=== PATIENT | male | born 1990 | race Caucasian/White ===

== ENCOUNTER 2021-11-19 17:19 | Emergency (ER) | payer SELFPAY ==
[~2021-11-19] VITALS: Ht 177.8 cm; Wt 90.7 kg
--- NOTE | 2021-11-19 17:33 | NUR ---
BIB MOM, C/O HEADACHE, ETOH WITHDRAWAL, SHAKINESS. ALSO CONCERNED ABOUT HIS SUGAR LEVEL LAST ALCOHOL INTAKE YESTERDAY MORNING. TO ER BED 9, HOOKED TO MONITOR, NOTED TACHY. CHANGED TO HOSP GOWN, WARM BLANKET PROVIDED. AWAITING MD BAUM.
--- NOTE | 2021-11-19 17:35 | NUR ---
[facility] DIRECTOR AT BEDSIDE
[2021-11-19] MEDS ORDERED: Thiamine 100 MG/ML VIAL ONE (17:52)
[2021-11-19] MEDS ORDERED: LORAZEPAM 1 MG TABLET ONE (17:53)
[2021-11-19] MEDS ORDERED: Thiamine 100 MG in IV D5W 50 ML IV SCH (18:00)
[2021-11-19] MEDS ORDERED: FAMOTIDINE/PF INJ 20 MG/2 ML VIAL IV ONE ×2 (18:00→18:47)
[2021-11-19] MEDS ORDERED: MAG HYDROX/AL HYDROX/SIMETH 30 ML UDC PO ONE (18:00)
[2021-11-19] MEDS ORDERED: IV NS 0.9% 1,000 ML BAG IV ONE (18:00)
[2021-11-19] MEDS ORDERED: LORAZEPAM 1 MG TABLET PO ONE (18:00)
[2021-11-19] MEDS ORDERED: LIDOCAINE VISCOUS 2% UD 15 ML UDC MM ONE (18:00)
[2021-11-19 18:09] LABS: BASOPHILS # (AUTO) 0.1 K/uL (0.0-0.2); BASOPHILS % (AUTO) 0.6 % (0.0-2.0); EOSINOPHILS % (AUTO) 0.5 % (0.0-6.0); HEMATOCRIT 50 % (39-51); HEMOGLOBIN 17.1 g/dL (13.5-17.5); LYMPHOCYTES # (AUTO) 2.8 K/uL (0.8-4.8); LYMPHOCYTES % (AUTO) 35.2 % (20.0-44.0); MEAN CORPUSCULAR HGB CONC 34 g/dl (31.0-36.0); MEAN CORPUSCULAR VOLUME 94 fL (80-96); MONOCYTES # (AUTO) 0.3 K/uL (0.1-1.30); MONOCYTES % (AUTO) 3.9 % (2.0-12.0); NEUTROPHILS # (AUTO) 4.7 K/uL (1.8-8.9); NEUTROPHILS % (AUTO) 59.8 % (43.0-81.0); PLATELET COUNT (AUTO) 276 K/uL (150-450); RED BLOOD CELL COUNT(AUTO) 5.32 MIL/uL (4.5-6.0); WHITE BLOOD COUNT (AUTO) 7.9 K/uL (4.3-11.0)
[2021-11-19 18:18] LABS: CALCIUM, SERUM 8.5 mg/dL (8.5-10.1); CARBON DIOXIDE 19 mmol/L (21-32); CHLORIDE 98 mmol/L (98-107); CREATININE 0.9 mg/dL (0.6-1.3); GLUCOSE 106 mg/dL (74-106); POTASSIUM 3.6 mmol/L (3.5-5.1); SODIUM SERUM 139 mmol/L (136-145); UREA NITROGEN, BLOOD 11 mg/dL (7-18)
[2021-11-19 18:26] LABS: ALANINE AMINOTRANSFERASE 169 U/L (12-78); ALBUMIN 4.1 g/dL (3.4-5.0); ALKALINE PHOSPHATASE 179 U/L (46-116); ASPARTATE AMINOTRANSFERASE 72 U/L (15-37); BILIRUBIN,DIRECT 0.2 mg/dL (0.0-0.2); BILIRUBIN,TOTAL 0.6 mg/dL (0.2-1.0); LIPASE 39 U/L (73-393); TOTAL PROTEIN, SERUM 8.6 g/dL (6.4-8.2)
[2021-11-19] MEDS ORDERED: LIDOCAINE VISCOUS 2% UD 15 ML UDC ONE (18:47)
[2021-11-19] MEDS ORDERED: MAG HYDROX/AL HYDROX/SIMETH 30 ML UDC ONE (18:47)
[2021-11-19] MEDS ORDERED: GLIP5TAB13 PO (19:19)
[2021-11-19] MEDS ORDERED: METF-441 PO (19:19)
--- NOTE | 2021-11-19 19:34 | NUR ---
IV removed. Catheter intact and site benign. Pressure and 4x4 applied to site. No bleeding noted.Patient discharged to home in stable condition. Written and verbal after care instructions given. Patient verbalizes understanding of instruction. Instructed not to drive.
[2021-11-19 19:35] VITALS: BP 134/95
[2021-11-19 20:15] LABS: BILIRUBIN,URINE NEGATIVE (NEGATIVE); COLOR,URINE YELLOW (YELLOW); LEUKOCYTE ESTERASE ,URINE NEGATIVE (NEGATIVE); NITRITE, URINE NEGATIVE (NEGATIVE); PH,URINE 5.5 (5.0-8.0); PROTEIN,URINE 30 mg/dl (NEGATIVE); UGLUCOSE NEGATIVE (NEGATIVE); UROBILINOGEN,URINE 0.2 EU/dL (0.2)
[2021-11-19 20:34] LABS: BACTERIA,URINE RARE /HPF (None Seen); HYALINE CASTS, URINE Few /LPF (None Seen); RBC,URINE 0-2 /HPF (0-2); SQUAMOUS EPITHELIAL CELL,UR 0-2 /HPF (None Seen); WBC,URINE 0-2 /HPF (0-3)
== END 2021-11-19 19:36 | disposition home or self-care (01) ==
LOC: ER 17:28
DX: F41.9 Anxiety disorder, unspecified (principal); R07.89 Other chest pain; F10.139 Alcohol abuse with withdrawal, unspecified; E11.65 Type 2 diabetes mellitus with hyperglycemia; R74.01 Elevation of levels of liver transaminase levels; Z91.14 Patient's other noncompliance with medication regimen; Z79.84 Long term (current) use of oral hypoglycemic drugs; Y90.9 Presence of alcohol in blood, level not specified
CPT/HCPCS: 99285; 96365; 71045; 96375; 93005; 85025; 80048; 83690; 80076; 81001; 36415; 84484; 85730; 82962; J3490; J7060 ×2; J7030; J3411 ×2

== ENCOUNTER 2022-01-02 08:37 | Inpatient (IN) | payer OTHER ==
[~2022-01-02] VITALS: Ht 180.3 cm; Wt 90.7 kg
[~2022-01-02 08:37] MED LIST: GLIP5TAB13 PO; METF-441 PO
[2022-01-02] MEDS ORDERED: IV NS 0.9% 1,000 ML BAG IV ONE ×2 (09:00→10:30)
[2022-01-02] MEDS ORDERED: ONDANSETRON HCL/PF 4 MG/2 ML VIAL ONE (09:04)
[2022-01-02 09:13] LABS: BASOPHILS # (AUTO) 0.1 K/uL (0.0-0.2); BASOPHILS % (AUTO) 0.6 % (0.0-2.0); EOSINOPHILS % (AUTO) 0.1 % (0.0-6.0); HEMATOCRIT 53 % (39-51); HEMOGLOBIN 17.8 g/dL (13.5-17.5); LYMPHOCYTES # (AUTO) 0.8 K/uL (0.8-4.8); LYMPHOCYTES % (AUTO) 7.1 % (20.0-44.0); MEAN CORPUSCULAR HGB CONC 34 g/dl (31.0-36.0); MEAN CORPUSCULAR VOLUME 94 fL (80-96); MONOCYTES # (AUTO) 0.3 K/uL (0.1-1.30); MONOCYTES % (AUTO) 2.5 % (2.0-12.0); NEUTROPHILS # (AUTO) 10.1 K/uL (1.8-8.9); NEUTROPHILS % (AUTO) 89.7 % (43.0-81.0); PLATELET COUNT (AUTO) 261 K/uL (150-450); RED BLOOD CELL COUNT(AUTO) 5.59 MIL/uL (4.5-6.0); WHITE BLOOD COUNT (AUTO) 11.2 K/uL (4.3-11.0)
[2022-01-02] MEDS ORDERED: ONDANSETRON HCL/PF 4 MG/2 ML VIAL IV ONE (09:30)
[2022-01-02] MEDS ORDERED: ONDANSETRON HCL/PF 4 MG/2 ML VIAL IVP ONE (09:30)
[2022-01-02 09:33] LABS: CALCIUM, SERUM 8.7 mg/dL (8.5-10.1); CHLORIDE 95 mmol/L (98-107); CREATININE 1.2 mg/dL (0.6-1.3); GLUCOSE 152 mg/dL (74-106); POTASSIUM 4.3 mmol/L (3.5-5.1); SODIUM SERUM 137 mmol/L (136-145); UREA NITROGEN, BLOOD 13 mg/dL (7-18)
[2022-01-02 10:04] LABS: CARBON DIOXIDE 8 mmol/L (21-32)
[2022-01-02] MEDS ORDERED: SODIUM BICARBONATE SYR 50 MEQ/50 ML DISP.SYRIN IV ONE (10:30)
[2022-01-02] MEDS ORDERED: SODIUM BICARBONATE SYR 50 MEQ/50 ML DISP.SYRIN ONE (10:33)
[2022-01-02] MEDS ORDERED: ACETAMINOPHEN ES 500 MG TABLET ONE (10:34)
--- NOTE | 2022-01-02 10:53 | NUR ---
MOVE SHEET SUBMITTED.
--- NOTE | 2022-01-02 10:59 | NUR ---
DILIP WITH PREFERED IPA [phone]
[2022-01-02] MEDS ORDERED: ACETAMINOPHEN ES 500 MG TABLET PO ONE (11:00)
--- NOTE | 2022-01-02 11:00 | NUR ---
BIBS C/O CHEST PAIN, PALPITATION, NAUSEA AND VOMITING SINCE 0500. ADMITS TO ALCOHOL INTAKE LAST NIGHT. AMBULATORY, PLACED ON BED, AAOX4, BREATHING EVEN AND UNLABORED.
[2022-01-02] MEDS: INSULIN REGULAR, HUMAN 100 UNITS in IV NS 0.9% 100 ML IV PRN ×4 (11:58→12:23)
[2022-01-02] MEDS: IV D5/ 0.9% NACL 1,000 ML IV PRN ×2 (11:58→12:24)
--- NOTE | 2022-01-02 12:10 | NUR ---
PATIENT WAS REVIEWED BY DR GILLILAND ORDERS TO DISCONTINUE INSULIN INF. AND D5 0.9NS INF. AND CARRIED OUT.
--- NOTE | 2022-01-02 12:31 | NUR ---
pt downgraded to tele. nursing supervisor edging aware.
[2022-01-02 12:39] LABS: ABG BASE EXCESS -16.4 mmol/L; ABG PCO2 22.3 mmHg (35.0-45.0); ABG PH 7.224 (7.350-7.450); ABG PO2 83.2 mmHg (75.0-100.0); COHb 0.4 % (0.5-1.5); MetHb 0.6 % (0.0-1.5); O2Hb 94.6 % (94.0-97.0); SITE, ABG Right Radial; VENT MODE, BG RA
[2022-01-02] MEDS ORDERED: Z GUARD REMEDY 4 OZ OINT TP PRN (14:00)
[2022-01-02] MEDS: IV NS 0.9% 1,000 ML IV SCH ×2 (14:00→22:44)
[2022-01-02] MEDS ORDERED: ACETAMINOPHEN 325 MG TABLET PO PRN (14:00)
[2022-01-02] MEDS ORDERED: ZOLPIDEM TARTRATE 5 MG TABLET PO PRN (14:00)
[2022-01-02] MEDS ORDERED: MAG HYDROX/AL HYDROX/SIMETH 30 ML UDC PO PRN (14:00)
[2022-01-02] MEDS ORDERED: PANTOPRAZOLE 40 MG VIAL IV ONE (14:00)
[2022-01-02] MEDS ORDERED: LORAZEPAM 1 MG TABLET PO PRN (14:00)
[2022-01-02] MEDS ORDERED: DEXTROSE 50%-WATER 50 ML DISP.SYRIN IV PRN ×2 (14:00→19:00)
[2022-01-02] MEDS ORDERED: ONDANSETRON HCL/PF 4 MG/2 ML VIAL IVP PRN (14:00)
[2022-01-02] MEDS ORDERED: MAGNESIUM HYDROXIDE 30 ML UDC PO PRN (14:00)
--- NOTE | 2022-01-02 14:15 | NUR ---
URINE SAMPLE SENT TO LAB
[2022-01-02] MEDS ORDERED: PANTOPRAZOLE 40 MG VIAL ONE (14:56)
[2022-01-02] MEDS ORDERED: CHLORDIAZEPOXIDE HCL 25 MG CAPSULE ONE (14:56)
[2022-01-02] MEDS: CHLORDIAZEPOXIDE HCL 25 MG CAPSULE PO SCH ×2 (15:00→19:37)
--- NOTE | 2022-01-02 15:12 | NUR ---
PER COMMUNICATION STUDIES PROFESSOR, URINE KETONES NOT AVAILABLE IN OUR MAIN LAB, NOT POSSIBLE FOR SEND OUT WELL. MADE DR GILLILAND AWARE.
[2022-01-02 15:23] LABS: BILIRUBIN,URINE NEGATIVE (NEGATIVE); COLOR,URINE YELLOW (YELLOW); LEUKOCYTE ESTERASE ,URINE NEGATIVE (NEGATIVE); NITRITE, URINE NEGATIVE (NEGATIVE); PH,URINE 5.5 (5.0-8.0); PROTEIN,URINE NEGATIVE (NEGATIVE); UGLUCOSE 100 MG/DL mg/dL (NEGATIVE); UROBILINOGEN,URINE 0.2 EU/dL (0.2)
--- NOTE | 2022-01-02 15:50 | NUR ---
Patient was transferred from the ER with primary diagnosis of chest pain , palpitation , nausea and vomiting , was admitted to the tele unit . patient is alert , oriented times 4 , ambulatory , urine and bowel continent .patient has IV access of the RFA 18 g with NS running at 120 ml.hr . Breathing non labored , dines any pain or discomfort at thins time . Bed is at lowest position , call light within reach , side rails are up will continue to monitor.
[2022-01-02 15:51] LABS: CALCIUM, SERUM 7.5 mg/dL (8.5-10.1); POTASSIUM 4.6 mmol/L (3.5-5.1)
--- NOTE | 2022-01-02 16:23 | NUR ---
ROOM ASSIGNED 112.2
--- NOTE | 2022-01-02 16:41 | NUR ---
RPORT GIVEN TO LEVY RN ROOM 112-2 FOR DEBBY
[2022-01-02 17:00] VITALS: BP 136/84
[2022-01-02 17:01] VITALS: BP 136/84
--- NOTE | 2022-01-02 18:48 | NUR ---
rn closing note Patient is in bed resting ,patient is alert , oriented times 4 , ambulatory , urine and bowel continent .patient has IV access of the RFA 18 g with NS running at 120 ml.hr . Breathing non labored , dines any pain or discomfort at thins time . Bed is at lowest position , call light within reach , side rails are up will endorse assembler garment form to DEBBY
[2022-01-02] MEDS ORDERED: INSULIN REGULAR, HUMAN 100 UNIT/ML 3 ML VIAL SQ PRN (19:00)
--- NOTE | 2022-01-02 19:15 | NUR ---
RN NOTES RECEIVED PT FOR CONTINUITY OF CARE. PATIENT A/OX4 IN NO S/SX OF ACUTE DISTRESS AT THIS TIME; CURRENTLY ON ROOM AIR ; WITH 02 SAT >95% AT THIS TIME.WITH IV ACCESS R AC#22 PATENT, INTACT AND FLUSHING WELL. WITH RUNNING NS@125CC/HR. WILL ENSURE SAFETY MEASURES WITHIN THE SHIFT. PATIENT BED ALARM IS ON. HEAD OF BED ELEVATED. BED IS LOCKED, IN LOWEST POSITION AND SIDE RAILS UP. CALL LIGHT WITHIN REACH OF THE PATIENT. WILL CONTINUE TO MONITOR AND REASSESS FOR ANY CHANGES AND WILL CARRY OUT ANY ONGOING AND ACTIVE MD ORDER.
[2022-01-02] MEDS: BLOOD SUGAR DIAGNOSTIC 1 EACH STRIP VI SCH ×2 (19:40→22:49)
[2022-01-02] MEDS: *INSULIN REGULAR(HUMULIN R)HUM 100 UNIT/ML VIAL SQ PRN ×2 (19:42→22:51)
[2022-01-02 20:00] VITALS: BP 117/73
[2022-01-03] VITALS: BP 128/85
[2022-01-03] MEDS ORDERED: BLOOD SUGAR DIAGNOSTIC 1 EACH STRIP IN SCH
[2022-01-03 04:00] VITALS: BP 136/83
--- NOTE | 2022-01-03 04:00 | NUR ---
RN NOTES PATIENT REMAINED TO BE IN NO SIGNS OF ACUTE RESPIRATORY DISTRESS , SAFE ENVIRONMENT MAINTAINED FOR PT. AM PATIENT CARE ASSISTANCE RENDERED. WILL CONTINUE TO MONITOR AND REASSESS FOR ANY CHANGES THROUGHOUT THE SHIFT.
[2022-01-03] MEDS: IV NS 0.9% 1,000 ML IV SCH ×2 (06:36→13:28)
--- NOTE | 2022-01-03 06:39 | NUR ---
RN CLOSING NOTE: PATIENT REMAINS IN ROOM IN NO SIGNS OF RESPIRATORY DISTRESS, PATIENT STILL ON ROOM AIR;TOLERATING WELL SATURATING @ >95% SP02. SAFETY MEASURES IMPLEMENTED, BED IN LOWEST POSITION, LOCKED, SIDE RAILS UP, CALL LIGHT WITHIN REACH. ALL NEEDS AND ORDERS ADDRESSED DURING THE SHIFT. IV ACCESS MAINTAINED INTACT, SECURED AND FLUSHING WELL. ALL DUE MEDS GIVEN ORDERED & SCHEDULED ; PATIENT TOLERATED WELL. PATIENT KEPT CLEAN AND COMFORTABLE WITHIN THE SHIFT. PATIENT ENDORSED TO INCOMING SHIFT RN WITH STABLE VITAL SIGN AND FOR CONTINUITY OF CARE.
[2022-01-03 06:58] LABS: BASOPHILS % (AUTO) 0.3 % (0.0-2.0); EOSINOPHILS % (AUTO) 0.9 % (0.0-6.0); HEMATOCRIT 42 % (39-51); HEMOGLOBIN 14.7 g/dL (13.5-17.5); LYMPHOCYTES # (AUTO) 1.2 K/uL (0.8-4.8); LYMPHOCYTES % (AUTO) 12.9 % (20.0-44.0); MEAN CORPUSCULAR HGB CONC 35 g/dl (31.0-36.0); MEAN CORPUSCULAR VOLUME 92 fL (80-96); MONOCYTES # (AUTO) 0.5 K/uL (0.1-1.30); NEUTROPHILS # (AUTO) 7.7 K/uL (1.8-8.9); NEUTROPHILS % (AUTO) 80.9 % (43.0-81.0); PLATELET COUNT (AUTO) 174 K/uL (150-450); RED BLOOD CELL COUNT(AUTO) 4.58 MIL/uL (4.5-6.0); WHITE BLOOD COUNT (AUTO) 9.5 K/uL (4.3-11.0)
[2022-01-03 07:28] LABS: CREATININE 0.8 mg/dL (0.6-1.3); MAGNESIUM 1.9 mg/dL (1.8-2.4); PHOSPHORUS 1.2 mg/dL (2.5-4.9); POTASSIUM 3.3 mmol/L (3.5-5.1)
[2022-01-03 08:00] VITALS: BP 123/73
--- NOTE | 2022-01-03 08:01 | NUR ---
NONPROFIT FUNDRAISER NOTE: PATIENT REMAINS IN BRED IN NO SIGNS OF RESPIRATORY DISTRESS, PATIENT STILL ON ROOM AIR;TOLERATING WELL SATURATING 99% SP02. SAFETY MEASURES IMPLEMENTED, BED IN LOWEST POSITION, LOCKED, SIDE RAILS UP, CALL LIGHT WITHIN REACH. ALL NEEDS ATTENDED, IV ACCESS MAINTAINED INTACT,AND FLUSHING WELL. . PATIENT KEPT CLEAN AND COMFORTABLE , ON TELE MONITOR SR HR 91, ON IVF ORDERED WILL CONT TO MONITOR
[2022-01-03] MEDS: CHLORDIAZEPOXIDE HCL 25 MG CAPSULE PO SCH (08:10)
[2022-01-03] MEDS: BLOOD SUGAR DIAGNOSTIC 1 EACH STRIP VI SCH ×2 (08:18→11:56)
[2022-01-03] MEDS: INSULIN REGULAR, HUMAN 100 UNIT/ML 3 ML VIAL SQ PRN ×2 (08:21→12:05)
[2022-01-03] MEDS ORDERED: PANTOPRAZOLE 40 MG TABLET.DR PO SCH (09:00)
[2022-01-03] MEDS ORDERED: THIAMINE HCL 100 MG TABLET PO SCH (09:00)
[2022-01-03] MEDS ORDERED: MULTIVITAMINS,THERAGRAN 1 UDTAB TABLET PO SCH (09:00)
[2022-01-03] MEDS ORDERED: POTASSIUM CHLORIDE 20 MEQ TAB.PRT.SR PO ONE (09:00)
--- NOTE | 2022-01-03 09:37 | NUR ---
AIRCRAFT POWERPLANT REPAIRER NOTE SEEN BY DR GILLILAND WILL F\U FURTHER ORDERS
--- NOTE | 2022-01-03 11:30 | NUR ---
television parts tester note all needs attended ,not in distress
[2022-01-03 12:00] VITALS: BP 130/80
[2022-01-03] MEDS ORDERED: Thiamine HCL PO (12:35)
[2022-01-03] MEDS ORDERED: MULT-754 PO (12:35)
--- NOTE | 2022-01-03 13:33 | NUR ---
telephone service adviser note per dr hawkins ok to discharge home , instruction given , tele removed , also instructed to how to take new px and possible side effects ,belonging checked by mandeep Antoine ,stated that go home by uber , excuse note from work given as requested by patent
--- NOTE | 2022-01-03 14:30 | NUR ---
telesales consultant not e tele removed dry dressing applied , no bleeding noted , taken patent to lobby by walking , left hospital with stable condition, go home by uber
== END 2022-01-03 14:25 | disposition home or self-care (01) | DRG 775 ==
LOC: ER 08:39 → TRANSITION 14:12 → TELE1 16:42
PROVIDERS: ADMIT Internal Medicine; ATTEND Internal Medicine
DX: F10.239 Alcohol dependence with withdrawal, unspecified (principal); R65.10 Systemic inflammatory response syndrome (SIRS) of non-infectious origin without acute organ dysfunction; E87.20 Acidosis, unspecified; E87.1 Hypo-osmolality and hyponatremia; D72.829 Elevated white blood cell count, unspecified; E11.9 Type 2 diabetes mellitus without complications; E86.1 Hypovolemia; E87.6 Hypokalemia; Z79.84 Long term (current) use of oral hypoglycemic drugs; R07.9 Chest pain, unspecified; Z20.822 Contact with and (suspected) exposure to COVID-19
CPT/HCPCS: 36415; 36600; 71045-TC; 80048-TC; 82803-TC; 82962-TC; 83735-TC; 84100-TC; 84484-TC; 85025-TC; 87081-TC; C9113; C9803; G0378; J1815; J2405; J3490; J7030; J7042

== ENCOUNTER 2022-02-09 14:52 | Emergency (ER) | payer OTHER ==
[~2022-02-09] VITALS: Ht 180.3 cm; Wt 86.2 kg
[~2022-02-09 14:52] MED LIST changes: +MULT-754 PO; +Thiamine HCL PO
--- NOTE | 2022-02-09 15:00 | NUR ---
RECEIVED PT 31 YRS MALE came from home c/o s/p fell down and back pain and lt shouldert pain pt ETOH
--- NOTE | 2022-02-09 15:25 | NUR ---
SEEN BY DR. HERRERA
[2022-02-09] MEDS ORDERED: IV NS 0.9% 1,000 ML BAG IV ONE ×2 (15:30→19:00)
--- NOTE | 2022-02-09 15:30 | NUR ---
BLOOD DROW BY LAB TACK
[2022-02-09 15:51] LABS: SITE, VBG Right Radial; VBG COHb 0.2 %; VBG MetHb 0.6 %; VBG O2Hb 93.3 %; VENT MODE, VBG ROOM AIR
[2022-02-09 15:55] LABS: BASOPHILS # (AUTO) 0.1 K/uL (0.0-0.2); BASOPHILS % (AUTO) 0.6 % (0.0-2.0); EOSINOPHILS % (AUTO) 0.2 % (0.0-6.0); HEMATOCRIT 46 % (39-51); HEMOGLOBIN 16.1 g/dL (13.5-17.5); LYMPHOCYTES % (AUTO) 11.1 % (20.0-44.0); MEAN CORPUSCULAR HGB CONC 35 g/dl (31.0-36.0); MEAN CORPUSCULAR VOLUME 93 fL (80-96); MONOCYTES # (AUTO) 0.4 K/uL (0.1-1.30); MONOCYTES % (AUTO) 4.9 % (2.0-12.0); NEUTROPHILS # (AUTO) 7.5 K/uL (1.8-8.9); NEUTROPHILS % (AUTO) 83.2 % (43.0-81.0); PLATELET COUNT (AUTO) 276 K/uL (150-450); RED BLOOD CELL COUNT(AUTO) 5.01 MIL/uL (4.5-6.0)
[2022-02-09 16:13] LABS: ALBUMIN 4.1 g/dL (3.4-5.0); BILIRUBIN,DIRECT 0.4 mg/dL (0.0-0.2); BILIRUBIN,TOTAL 1.1 mg/dL (0.2-1.0); CALCIUM, SERUM 8.8 mg/dL (8.5-10.1); CREATININE 0.9 mg/dL (0.6-1.3); POTASSIUM 3.8 mmol/L (3.5-5.1); TOTAL PROTEIN, SERUM 8.6 g/dL (6.4-8.2)
--- NOTE | 2022-02-09 16:21 | NUR ---
RESTING AT THIS TIME
--- NOTE | 2022-02-09 18:21 | NUR ---
VITAL SIGNS UPDATED.
--- NOTE | 2022-02-09 19:35 | NUR ---
HAND OFF EDDIE WRIGHT
[2022-02-09 19:56] LABS: BILIRUBIN,URINE NEGATIVE (NEGATIVE); COLOR,URINE YELLOW (YELLOW); LEUKOCYTE ESTERASE ,URINE NEGATIVE (NEGATIVE); NITRITE, URINE NEGATIVE (NEGATIVE); PROTEIN,URINE 1+ mg/dl (NEGATIVE); UGLUCOSE NEGATIVE (NEGATIVE); UROBILINOGEN,URINE 0.2 EU/dL (0.2)
[2022-02-09] MEDS ORDERED: HYDR-4303 PO (20:31)
[2022-02-09] MEDS ORDERED: HYDROCODONE/APAP 10/325MG TABLET ONE (20:58)
[2022-02-09] MEDS ORDERED: HYDROCODONE/APAP 10/325MG TABLET PO ONE (21:00)
--- NOTE | 2022-02-09 21:06 | NUR ---
Patient discharged to home in stable condition. Written and verbal after care instructions given. Patient verbalizes understanding of instruction.IV removed. Catheter intact and site benign. Pressure and 4x4 applied to site. No bleeding noted.
[2022-02-09 21:07] VITALS: BP 142/88
== END 2022-02-09 21:07 | disposition home or self-care (01) ==
LOC: ER 14:54
DX: S22.089A Unspecified fracture of T11-T12 vertebra, initial encounter for closed fracture (principal); S32.019A Unspecified fracture of first lumbar vertebra, initial encounter for closed fracture; S32.029A Unspecified fracture of second lumbar vertebra, initial encounter for closed fracture; S32.039A Unspecified fracture of third lumbar vertebra, initial encounter for closed fracture; E11.9 Type 2 diabetes mellitus without complications; Z60.2 Problems related to living alone; Z79.899 Other long term (current) drug therapy; W10.9XXA Fall (on) (from) unspecified stairs and steps, initial encounter; Y93.89 Activity, other specified; Y92.89 Other specified places as the place of occurrence of the external cause; Y99.8 Other external cause status
CPT/HCPCS: 99285; 93308; 74176; 96360; 76705; 96361; 93005; 82803 ×2; 85025; 80048; 83690; 80076; 81001; 36415; 82962; 36600; J7030 ×2

== ENCOUNTER 2022-05-07 21:42 | Emergency (ER) | payer OTHER ==
[~2022-05-07] VITALS: Ht 177.8 cm; Wt 90.7 kg
[~2022-05-07 21:42] MED LIST changes: +HYDR-4303 PO
--- NOTE | 2022-05-07 23:44 | NUR ---
BIBMOTHER TO ER BED 12. AAOX4. NOT IN RESP DISTRESS. AMBULATORY. CAME IN FOR NAUSEA ND VOMITING X 2 DAYS, UNABLE TO KEEP FOOD DOWN. PT ALSO ENDORSES THAT HIS HEART IS RACING, NOTED TACHYCARDIC. AWAITING MD FOR EVAL.
[2022-05-07] MEDS ORDERED: ONDANSETRON HCL/PF 4 MG/2 ML VIAL ONE (23:47)
[2022-05-08] MEDS ORDERED: IV NS 0.9% 1,000 ML BAG IV ONE
[2022-05-08] MEDS ORDERED: ONDANSETRON HCL/PF 4 MG/2 ML VIAL IVP ONE
[2022-05-08 00:25] LABS: BASOPHILS % (AUTO) 0.3 % (0.0-2.0); HEMATOCRIT 53 % (39-51); HEMOGLOBIN 18.2 g/dL (13.5-17.5); LYMPHOCYTES # (AUTO) 0.3 K/uL (0.8-4.8); LYMPHOCYTES % (AUTO) 2.3 % (20.0-44.0); MEAN CORPUSCULAR HGB CONC 35 g/dl (31.0-36.0); MEAN CORPUSCULAR VOLUME 93 fL (80-96); MONOCYTES # (AUTO) 0.5 K/uL (0.1-1.30); MONOCYTES % (AUTO) 3.7 % (2.0-12.0); NEUTROPHILS # (AUTO) 11.8 K/uL (1.8-8.9); NEUTROPHILS % (AUTO) 93.7 % (43.0-81.0); PLATELET COUNT (AUTO) 205 K/uL (150-450); RED BLOOD CELL COUNT(AUTO) 5.65 MIL/uL (4.5-6.0); WHITE BLOOD COUNT (AUTO) 12.6 K/uL (4.3-11.0)
[2022-05-08 00:28] LABS: CALCIUM, SERUM 9.8 mg/dL (8.5-10.1); CREATININE 1.3 mg/dL (0.6-1.3); POTASSIUM 3.2 mmol/L (3.5-5.1)
[2022-05-08 00:31] LABS: ALBUMIN 4.3 g/dL (3.4-5.0); BILIRUBIN,DIRECT 1.1 mg/dL (0.0-0.2); BILIRUBIN,TOTAL 2.7 mg/dL (0.2-1.0); TOTAL PROTEIN, SERUM 9.1 g/dL (6.4-8.2)
--- NOTE | 2022-05-08 00:45 | NUR ---
PT TOLEARTED PO CHALLENGE
[2022-05-08] MEDS ORDERED: ONDA4TAB5 PO (00:46)
--- NOTE | 2022-05-08 00:48 | NUR ---
Patient discharged to home in stable condition. Written and verbal after care instructions given. Patient verbalizes understanding of instruction.IV removed. Catheter intact and site benign. Pressure and 4x4 applied to site. No bleeding noted. Pt ambulatory with a steady gait
[2022-05-08 00:51] VITALS: BP 152/95
== END 2022-05-08 00:50 | disposition home or self-care (01) ==
LOC: ER 21:52
DX: F10.20 Alcohol dependence, uncomplicated (principal); R74.01 Elevation of levels of liver transaminase levels; E87.20 Acidosis, unspecified; R11.2 Nausea with vomiting, unspecified; E11.9 Type 2 diabetes mellitus without complications; Z60.2 Problems related to living alone; Z79.899 Other long term (current) drug therapy; Y90.9 Presence of alcohol in blood, level not specified
CPT/HCPCS: 99283; 96374; 96361 ×2; 85025; 80048; 83690; 80076; 36415; J2405; J7030

== ENCOUNTER 2022-08-28 11:57 | Inpatient (IN) | payer OTHER ==
[~2022-08-28] VITALS: Ht 177.8 cm; Wt 86.6 kg
[~2022-08-28 11:57] MED LIST changes: +ONDA4TAB5 PO
--- NOTE | 2022-08-28 12:05 | NUR ---
CHEST DISCOMFORT, NAUSEA, VOMITTING "BLOOD" SINCE LAST NIGHT
[2022-08-28] MEDS ORDERED: ONDANSETRON HCL/PF 4 MG/2 ML VIAL IV PRN ×2 (12:15→21:30)
[2022-08-28] MEDS ORDERED: ONDANSETRON HCL/PF 4 MG/2 ML VIAL ONE ×2 (12:19→15:02)
--- NOTE | 2022-08-28 12:20 | NUR ---
IV LEFT HAND G20
[2022-08-28] MEDS ORDERED: IV NS 0.9% 1,000 ML BAG IV ONE (12:30)
--- NOTE | 2022-08-28 12:52 | NUR ---
URINE /BLOOD SAMPLE COLLECTED SENT TO LAB
--- NOTE | 2022-08-28 12:53 | NUR ---
FEEDER CATCHER TOBACCO AT BEDSIDE
[2022-08-28 12:54] LABS: BASOPHILS # (AUTO) 0.1 K/uL (0.0-0.2); BASOPHILS % (AUTO) 0.6 % (0.0-2.0); HEMATOCRIT 51 % (39-51); HEMOGLOBIN 17.4 g/dL (13.5-17.5); LYMPHOCYTES # (AUTO) 0.7 K/uL (0.8-4.8); LYMPHOCYTES % (AUTO) 5.9 % (20.0-44.0); MEAN CORPUSCULAR HGB CONC 34 g/dl (31.0-36.0); MEAN CORPUSCULAR VOLUME 93 fL (80-96); MONOCYTES # (AUTO) 0.6 K/uL (0.1-1.30); NEUTROPHILS # (AUTO) 9.8 K/uL (1.8-8.9); NEUTROPHILS % (AUTO) 88.5 % (43.0-81.0); PLATELET COUNT (AUTO) 286 K/uL (150-450); RED BLOOD CELL COUNT(AUTO) 5.49 MIL/uL (4.5-6.0)
[2022-08-28 13:11] LABS: CREATININE 1.2 mg/dL (0.6-1.3); POTASSIUM 4.3 mmol/L (3.5-5.1)
[2022-08-28 13:17] LABS: ALBUMIN 4.5 g/dL (3.4-5.0); BILIRUBIN,DIRECT 0.6 mg/dL (0.0-0.2)
--- NOTE | 2022-08-28 13:22 | NUR ---
COVID SWAB COLLECTED AND SENT TO LAB
--- NOTE | 2022-08-28 13:25 | NUR ---
MOVE SHEET SUBMITTED.
[2022-08-28 13:57] LABS: BILIRUBIN,URINE 1+ (NEGATIVE); COLOR,URINE YELLOW (YELLOW); LEUKOCYTE ESTERASE ,URINE NEGATIVE (NEGATIVE); NITRITE, URINE NEGATIVE (NEGATIVE); PROTEIN,URINE 2+ mg/dl (NEGATIVE); UGLUCOSE NEGATIVE (NEGATIVE)
[2022-08-28 13:59] LABS: BACTERIA,URINE Rare /HPF (None Seen); RBC,URINE 0-2 /HPF (0-2); SQUAMOUS EPITHELIAL CELL,UR Few /HPF (None Seen); WBC,URINE 0-2 /HPF (0-3)
--- NOTE | 2022-08-28 14:14 | NUR ---
[facility] CALLED SENIOR ETL DEVELOPER PAGED.
[2022-08-28] MEDS ORDERED: GLIP5TAB13 PO (14:15)
[2022-08-28] MEDS ORDERED: METF-441 PO (14:15)
--- NOTE | 2022-08-28 14:26 | NUR ---
ROOM 104 ADMITTING AWARE
--- NOTE | 2022-08-28 14:57 | NUR ---
REPORT GIVEN TO KYLE BILLINGS
[2022-08-28] MEDS: ONDANSETRON HCL/PF 4 MG/2 ML VIAL IV PRN ×2 (15:12→17:08)
--- NOTE | 2022-08-28 15:40 | NUR ---
RECEIVED PATIENT FROM ED VIA GURNEY, PATIENT IS AMBULATORY, ALERT AND ORIENTED X4, DENIES ANY PAIN AT THIS MOMENT, PATIENT STILL NOTED COMPLAINING OF NAUSEA AND VOMITING. LEFT FOREARM PIV NOTED PATENT AND INTACT, FLUSHES WELL. ATTACHED TO TELE MONITOR WITH READING ST 110-130'S. ORIENTED TO THE USE OF CALL LIGHT AND BED REGULATOR. SAFETY MEASURES IN PLACED. CALL LIGHT AND TABLE WITHIN REACH. PLAN OF CARE CONTINUE.
--- NOTE | 2022-08-28 15:40 | NUR ---
MOVED TO INPATIENT ROOM SAFELY PER ACLS PROTOCOL
--- NOTE | 2022-08-28 15:51 | NUR ---
INFORMED DR. GILLILAND THAT PATIENT IS ON THE FLOOR IF WE CAN HAVE ORDERS, PER MD PATIENT SHOULD NOT BE ON THE FLOW YET WITHOUT THE ABG RESULT, INFORMED RT.
[2022-08-28 16:30] LABS: ABG BASE EXCESS -9.8 mmol/L; ABG PCO2 23.6 mmHg (35.0-45.0); ABG PH 7.363 (7.350-7.450); ABG PO2 88.7 mmHg (75.0-100.0); COHb 0.2 % (0.5-1.5); MetHb 0.7 % (0.0-1.5); O2Hb 95.8 % (94.0-97.0); SITE, ABG Right Radial; VENT MODE, BG Room Air
[2022-08-28] MEDS ORDERED: MAGNESIUM HYDROXIDE 30 ML UDC PO PRN (16:30)
[2022-08-28] MEDS ORDERED: ONDANSETRON HCL/PF 4 MG/2 ML VIAL IVP PRN (16:30)
[2022-08-28] MEDS ORDERED: MAG HYDROX/AL HYDROX/SIMETH 30 ML UDC PO PRN (16:30)
[2022-08-28] MEDS ORDERED: DEXTROSE 50%-WATER 50 ML DISP.SYRIN IV PRN (16:30)
[2022-08-28] MEDS ORDERED: Z GUARD REMEDY 4 OZ OINT TP PRN (16:30)
[2022-08-28] MEDS ORDERED: ACETAMINOPHEN 325 MG TABLET PO PRN (16:30)
--- NOTE | 2022-08-28 16:32 | NUR ---
ABG RESULTS RECEIVED INFORMED DR. GILLILAND.
[2022-08-28] MEDS ORDERED: IV NS 0.9% 1,000 ML IV ONE (17:00)
--- NOTE | 2022-08-28 17:00 | NUR ---
DR. GILLILAND AT THE PATIENT'S ROOM, WITH NEW ORDER TO GIVE NS 2 LITERS BOLUS, RECHECK ABG AROUND 7PM AND INFORMED DR. GILLILAND OF THE RESULT, NOTED AND CARRIED OUT.
[2022-08-28] MEDS: BLOOD SUGAR DIAGNOSTIC 1 EACH STRIP VI SCH ×2 (17:09→21:28)
[2022-08-28] MEDS: INSULIN REGULAR, HUMAN 100 UNIT/ML 3 ML VIAL SQ PRN (17:37)
[2022-08-28] MEDS: IV NS 0.9% 1,000 ML IV SCH (17:40)
--- NOTE | 2022-08-28 18:38 | NUR ---
ASSISTANT THERAPY AIDE CLOSING NOTE PATIENT IS NOTED SLEEPING, EASILY AWAKEN. ALERT AND ORIENTED X4, DENIES ANY PAIN AT THIS MOMENT, NO C/O OF NAUSEA AND VOMITING AT THIS MOMENT. LEFT FOREARM PIV NOTED PATENT AND INTACT, FLUSHES WELL, WITH IV NS RUNNING AT 125ML/HR. ATTACHED TO TELE MONITOR WITH READING ST 110-115'S. SAFETY MEASURES IN PLACED. CALL LIGHT AND TABLE WITHIN REACH. WILL ENDORSE TO NIGHT NURSE FOR DEBBY.
--- NOTE | 2022-08-28 19:10 | NUR ---
RN NOTE RECEIVED PT FOR CONTINUITY OF CARE. PATIENT A/OX4 IN NO S/SX OF ACUTE DISTRESS AT THIS TIME; CURRENTLY ON ROOM AIR ; WITH 02 SAT >95% AT THIS TIME.WITH IV ACCESS ON L HAND#20 PATENT, INTACT AND FLUSHING WELL. WITH RUNNING NS@120CC/HR. WILL ENSURE SAFETY MEASURES WITHIN THE SHIFT. PATIENT BED ALARM IS ON. HEAD OF BED ELEVATED. BED IS LOCKED, IN LOWEST POSITION AND SIDE RAILS UP. CALL LIGHT WITHIN REACH OF THE PATIENT. WILL CONTINUE TO MONITOR AND REASSESS FOR ANY CHANGES AND WILL CARRY OUT ANY ONGOING AND ACTIVE MD ORDER.
--- NOTE | 2022-08-28 19:30 | NUR ---
RN NOTE ABG DONE BY RT, ENDORSED RESULT TO DR. GILLILAND. MD ACKNOWLEDGED. ORDER GIVEN FOR STAT CBC AND BMP, SAID INFORM HIM ABOUT RESULT ASHLEY. RN ACKNOWLEDGED. NOTIFIED LAB.
[2022-08-28 20:00] VITALS: BP 140/75
[2022-08-28 20:07] LABS: BASOPHILS % (AUTO) 0.4 % (0.0-2.0); HEMATOCRIT 44 % (39-51); HEMOGLOBIN 14.8 g/dL (13.5-17.5); LYMPHOCYTES # (AUTO) 0.6 K/uL (0.8-4.8); LYMPHOCYTES % (AUTO) 6.6 % (20.0-44.0); MEAN CORPUSCULAR HGB CONC 34 g/dl (31.0-36.0); MEAN CORPUSCULAR VOLUME 93 fL (80-96); MONOCYTES # (AUTO) 0.6 K/uL (0.1-1.30); MONOCYTES % (AUTO) 6.6 % (2.0-12.0); NEUTROPHILS # (AUTO) 8.4 K/uL (1.8-8.9); NEUTROPHILS % (AUTO) 86.4 % (43.0-81.0); PLATELET COUNT (AUTO) 198 K/uL (150-450); RED BLOOD CELL COUNT(AUTO) 4.69 MIL/uL (4.5-6.0); WHITE BLOOD COUNT (AUTO) 9.7 K/uL (4.3-11.0)
[2022-08-28 20:16] LABS: CALCIUM, SERUM 8.5 mg/dL (8.5-10.1); CREATININE 1.1 mg/dL (0.6-1.3); POTASSIUM 3.5 mmol/L (3.5-5.1)
[2022-08-28 20:19] LABS: ABG BASE EXCESS -11.8 mmol/L; ABG OXYGEN SATURATION 96.6 % (92.0-98.5); ABG PCO2 21.9 mmHg (35.0-45.0); ABG PH 7.339 (7.350-7.450); ABG PO2 92.4 mmHg (75.0-100.0); AaDO2 31.1 mmHg; COHb 0.7 % (0.5-1.5); MetHb 0.4 % (0.0-1.5); O2Hb 95.5 % (94.0-97.0); SITE, ABG Right Radial; VENT MODE, BG ROOM AIR
--- NOTE | 2022-08-28 20:40 | NUR ---
RN NOTE CBC, BM AND LACTIC ACID RESULL ENDORSED TO DR. TALAT MD ACKNOWLEDGED. NO NEW ORDERS CONTINUE CURRENT TREATMENT PLAN. RN ACKNOWLEDGED. WEDDING CAKE DESIGNER MADE AWARE.
[2022-08-28] MEDS: *INSULIN REGULAR(HUMULIN R)HUM 100 UNIT/ML VIAL SQ PRN (21:29)
[2022-08-29] VITALS: BP 137/70
[2022-08-29] MEDS: IV NS 0.9% 1,000 ML IV SCH ×3 (00:33→17:41)
[2022-08-29 04:00] VITALS: BP 122/69
[2022-08-29 06:01] LABS: BASOPHILS % (AUTO) 0.5 % (0.0-2.0); EOSINOPHILS % (AUTO) 0.2 % (0.0-6.0); HEMATOCRIT 41 % (39-51); HEMOGLOBIN 14.2 g/dL (13.5-17.5); LYMPHOCYTES % (AUTO) 14.1 % (20.0-44.0); MEAN CORPUSCULAR HGB CONC 35 g/dl (31.0-36.0); MEAN CORPUSCULAR VOLUME 93 fL (80-96); MONOCYTES # (AUTO) 0.8 K/uL (0.1-1.30); MONOCYTES % (AUTO) 11.3 % (2.0-12.0); NEUTROPHILS # (AUTO) 5.1 K/uL (1.8-8.9); NEUTROPHILS % (AUTO) 73.9 % (43.0-81.0); PLATELET COUNT (AUTO) 157 K/uL (150-450); RED BLOOD CELL COUNT(AUTO) 4.39 MIL/uL (4.5-6.0); WHITE BLOOD COUNT (AUTO) 6.9 K/uL (4.3-11.0)
[2022-08-29 06:18] LABS: CALCIUM, SERUM 8.6 mg/dL (8.5-10.1); CREATININE 0.9 mg/dL (0.6-1.3); MAGNESIUM 2.4 mg/dL (1.8-2.4); POTASSIUM 3.4 mmol/L (3.5-5.1)
--- NOTE | 2022-08-29 06:38 | NUR ---
KYLE NOTE RECEIVED CALL FROM LABSallieARIANNE) PHOS 1.0. WILL ENDORSE TO AM SHIFT. Addendum: 08/29/22 at 0646 by NATHAN HOLLEY RN NOTIFIED ([place])
--- NOTE | 2022-08-29 06:44 | NUR ---
RN NOTE PATIENT REMAINS IN ROOM IN NO SIGNS OF RESPIRATORY DISTRESS, PATIENT STILL ON ROOM AIR;TOLERATING WELL SATURATING @ >95% SP02. SR ON MONITOR. CLEAR LIQUIDS. SAFETY MEASURES IMPLEMENTED, BED IN LOWEST POSITION, LOCKED, SIDE RAILS UP, CALL LIGHT WITHIN REACH. ALL NEEDS AND ORDERS ADDRESSED DURING THE SHIFT. IV ACCESS MAINTAINED INTACT, SECURED AND FLUSHING WELL. ALL DUE MEDS GIVEN ORDERED & SCHEDULED ; PATIENT TOLERATED WELL. PATIENT KEPT CLEAN AND COMFORTABLE WITHIN THE SHIFT. PATIENT ENDORSED TO INCOMING SHIFT RN WITH STABLE VITAL SIGN AND FOR CONTINUITY OF CARE.
--- NOTE | 2022-08-29 07:03 | NUR ---
RN OPENING NOTE PATIENT IN BED, NO SIGNS OF RESPIRATORY DISTRESS, ON ROOM AIR, SATURATING @ >95% SP02. SR ON MONITOR. CLEAR LIQUIDS. SAFETY MEASURES IMPLEMENTED, BED IN LOWEST POSITION, LOCKED, SIDE RAILS UP, CALL LIGHT WITHIN REACH. WILL CONTINUE TO MONITOR.
[2022-08-29] MEDS: BLOOD SUGAR DIAGNOSTIC 1 EACH STRIP VI SCH ×4 (07:19→21:49)
[2022-08-29] MEDS: INSULIN REGULAR, HUMAN 100 UNIT/ML 3 ML VIAL SQ PRN ×2 (07:25→13:00)
[2022-08-29 08:00] VITALS: BP 118/75
[2022-08-29] MEDS: POTASSIUM PHOSPHATE MM 7.5 MMOL in IV NS 0.9% 100 ML IV SCH ×2 (09:17→12:49)
[2022-08-29] MEDS ORDERED: METF-441 PO (10:52)
[2022-08-29] MEDS ORDERED: GLIP5TAB13 PO (10:52)
[2022-08-29 12:00] VITALS: BP 132/77
[2022-08-29 16:00] VITALS: BP 126/75
--- NOTE | 2022-08-29 18:37 | NUR ---
RN OPENING NOTE PATIENT IN BED, A/O X4, AMBULATORY WITH BPR. DIABETIC DIET. NO SIGNS OF RESPIRATORY DISTRESS, ON ROOM AIR, SATURATING @ >95% SP02. SR ON MONITOR. IV ACCESS LEFT HAND G20, NS AT 120ML/HR. SAFETY MEASURES IMPLEMENTED, BED IN LOWEST POSITION, LOCKED, CALL LIGHT WITHIN REACH. WILL ENDORSE TO THE UPCOMING SHIFT FOR DEBBY.
--- NOTE | 2022-08-29 19:00 | NUR ---
CLASSIFIED ADVERTISING MANAGER OPENING NOTE RECEIVED PATIENT IN BED. AWAKE RESTING A/O X4. ABLE TO MAKE NEEDS KNOWN. IV ACCESS ON LEFT HAND #20 INFUSING 0.9% NS @ 120CC/HR. ON TELE MONITOR REACHING OF SINUS RHYTHM 85-90BPM. NO COMPLAINS OF ANY PAIN AT THE MOMENT. ON ROOM AIR TOLERATING WELL, SATURATION OF 97%. NO SIGNS OF DISTRESS NO SOB NOTED. SAFETY MEASURE IN PLACED: BED LOCKED AND IN LOWEST POSITION, HOB ELEVATED, SIDE RAILS UP X2, CALL LIGHT AND TRAY TABLE WITHIN PATIENTS REACH.
[2022-08-29 20:00] VITALS: BP 123/81
[2022-08-29] MEDS: *INSULIN REGULAR(HUMULIN R)HUM 100 UNIT/ML VIAL SQ PRN (22:00)
--- NOTE | 2022-08-29 22:02 | NUR ---
RN NOTE BLOOD SUGAR IS CHECKED RESULT IS 173. GIVEN REGULAR INSULIN 3 UNITS PER SLIDING SCALE.
[2022-08-30] VITALS: BP 130/74
[2022-08-30] MEDS: IV NS 0.9% 1,000 ML IV SCH (00:17)
[2022-08-30 04:00] VITALS: BP 116/78
--- NOTE | 2022-08-30 06:44 | NUR ---
DECALER CLOSING NOTE PATIENT IN BED. AWAKE RESTING A/O X4. ABLE TO MAKE NEEDS KNOWN. IV ACCESS ON LEFT HAND #20 INFUSING 0.9% NS @ 120CC/HR. ON TELE MONITOR REACHING OF SINUS RHYTHM 85-90BPM. NO COMPLAINS OF ANY PAIN AT THE MOMENT. ON ROOM AIR TOLERATING WELL, SATURATION OF 97%. NO SIGNS OF DISTRESS NO SOB NOTED. ALL DUE MEDICATIONS GIVEN ORDERED, ALL NEEDS ARE MET, MADE SURE PATIENT IS KEPT CLEAN AND COMFORTABLE, SAFETY MEASURE IN PLACED: BED LOCKED AND IN LOWEST POSITION, HOB ELEVATED, SIDE RAILS UP X2, CALL LIGHT AND TRAY TABLE WITHIN PATIENTS REACH. WILL ENDORSE TO NEXT SHIFT NURSE FOR CONTINUITY OF CARE.
[2022-08-30] MEDS: BLOOD SUGAR DIAGNOSTIC 1 EACH STRIP VI SCH (07:39)
--- NOTE | 2022-08-30 07:40 | NUR ---
OUTCOMES SPECIALIST OPENING NOTE RECEIVED PATIENT IN BED. AWAKE RESTING A/O X4. ABLE TO MAKE NEEDS KNOWN. IV ACCESS ON LEFT HAND #20 INFUSING 0.9% NS @ 120CC/HR. ON TELE MONITOR REACHING OF SINUS RHYTHM 85-90BPM. NO COMPLAINS OF ANY PAIN AT THE MOMENT. ON ROOM AIR TOLERATING WELL, NO SIGNS OF DISTRESS NO SOB NOTED. SAFETY MEASURE IN PLACED: BED LOCKED AND IN LOWEST POSITION, HOB ELEVATED, SIDE RAILS UP X2, CALL LIGHT AND TRAY TABLE WITHIN PATIENTS REACH. PLAN OF CARE CONTINUE.
--- NOTE | 2022-08-30 09:42 | NUR ---
DISCHARGE INSTRUCTIONS REVIEWED WITH THE PATIENT, CONFIRMED UNDERSTANDING, PATIENT SIGNED ALL DISCHARGE PAPERWORKS AND PERSONAL BELONGING LIST. RELEASED ALL PERSONAL BELONGINGS AND DISCHARGE PAPER WORKS TO THE PATIENT. Addendum: 08/30/22 at 1012 by HODA TRAORE RN INSTRUCTED PATIENT TO FOLLOW UP WITH PCP
--- NOTE | 2022-08-30 09:50 | NUR ---
PATIENT EXITED THE HOSPITAL VIA ACCOMPANIED BY FATHER VIA PRIVATE CAR.
== END 2022-08-30 10:00 | disposition home or self-care (01) | DRG 420 ==
LOC: ER 12:00 → TELE1 14:49
PROVIDERS: ADMIT Internal Medicine; ATTEND Internal Medicine
DX: E11.10 Type 2 diabetes mellitus with ketoacidosis without coma (principal); N17.0 Acute kidney failure with tubular necrosis; K22.6 Gastro-esophageal laceration-hemorrhage syndrome; F10.10 Alcohol abuse, uncomplicated; Z79.84 Long term (current) use of oral hypoglycemic drugs; E83.42 Hypomagnesemia; E87.6 Hypokalemia; Z20.822 Contact with and (suspected) exposure to COVID-19; R00.0 Tachycardia, unspecified; Z91.148 Patient's other noncompliance with medication regimen for other reason; Z91.119 Patient's noncompliance with dietary regimen due to unspecified reason
CPT/HCPCS: 36415; 36600; 71045-TC; 80048-TC; 80076-TC; 81001; 82803-TC; 82962-TC; 83605-TC; 83690-TC; 83735-TC; 84100-TC; 85025-TC; 87081-TC; A4223; C9803; G0378; J1815; J2405; J3490; J7030

== ENCOUNTER 2022-10-02 15:08 | Emergency (ER) | payer OTHER ==
[~2022-10-02] VITALS: Ht 180.3 cm; Wt 86.2 kg
[~2022-10-02 15:08] MED LIST changes: -HYDR-4303 PO; -MULT-754 PO; -ONDA4TAB5 PO; -Thiamine HCL PO
--- NOTE | 2022-10-02 15:35 | NUR ---
BIBS C/O SUBSTERNAL NON RADIATING CP AND VOMITING THIS MORNING. PT STATES" I WAS DRINKING ALOT OF ALCOHOL LAST NIGHT AND MY SUGAR IS PROBABLY HIGH".
[2022-10-02] MEDS ORDERED: ONDANSETRON HCL/PF 4 MG/2 ML VIAL ONE (16:00)
[2022-10-02] MEDS ORDERED: ONDANSETRON HCL/PF 4 MG/2 ML VIAL IVP ONE (16:00)
[2022-10-02] MEDS ORDERED: IV NS 0.9% 1,000 ML BAG IV ONE ×2 (16:00→17:00)
[2022-10-02 16:01] LABS: ABG PCO2 27.5 mmHg (35.0-45.0); ABG PH 7.416 (7.350-7.450); ABG PO2 58.1 mmHg (75.0-100.0); COHb 0.3 % (0.5-1.5); MetHb 0.6 % (0.0-1.5); O2Hb 90.8 % (94.0-97.0); SITE, ABG Other; VENT MODE, BG ROOM AIR
--- NOTE | 2022-10-02 16:07 | NUR ---
BLOOD DRAWN AND SENT TO LAB
--- NOTE | 2022-10-02 16:35 | NUR ---
PATIENT TAKEN TO CT VIA YAIMA
[2022-10-02 16:37] LABS: BASOPHILS % (AUTO) 0.3 % (0.0-2.0); HEMATOCRIT 51 % (39-51); HEMOGLOBIN 17.5 g/dL (13.5-17.5); LYMPHOCYTES # (AUTO) 0.9 K/uL (0.8-4.8); LYMPHOCYTES % (AUTO) 7.3 % (20.0-44.0); MEAN CORPUSCULAR HGB CONC 34 g/dl (31.0-36.0); MEAN CORPUSCULAR VOLUME 91 fL (80-96); MONOCYTES # (AUTO) 0.9 K/uL (0.1-1.30); MONOCYTES % (AUTO) 7.3 % (2.0-12.0); NEUTROPHILS # (AUTO) 10.3 K/uL (1.8-8.9); NEUTROPHILS % (AUTO) 85.1 % (43.0-81.0); PLATELET COUNT (AUTO) 254 K/uL (150-450); RED BLOOD CELL COUNT(AUTO) 5.62 MIL/uL (4.5-6.0); WHITE BLOOD COUNT (AUTO) 12.1 K/uL (4.3-11.0)
[2022-10-02 16:45] LABS: CALCIUM, SERUM 9.6 mg/dL (8.5-10.1); CREATININE 1.4 mg/dL (0.6-1.3); POTASSIUM 3.6 mmol/L (3.5-5.1)
[2022-10-02 16:51] LABS: ALBUMIN 4.3 g/dL (3.4-5.0); BILIRUBIN,DIRECT 0.7 mg/dL (0.0-0.2); BILIRUBIN,TOTAL 2.7 mg/dL (0.2-1.0); TOTAL PROTEIN, SERUM 9.1 g/dL (6.4-8.2)
[2022-10-02] MEDS ORDERED: LACTULOSE 10 G/15 ML UDC (PYXIS) PO ONE (17:00)
[2022-10-02] MEDS ORDERED: LACTULOSE 10 G/15 ML UDC (PYXIS) ONE (17:36)
[2022-10-02] MEDS ORDERED: LACT10SO3 PO (18:19)
[2022-10-02] MEDS ORDERED: ONDA4TAB5 PO (18:34)
--- NOTE | 2022-10-02 18:40 | NUR ---
IV removed. Catheter intact and site benign. Pressure and 4x4 applied to site. No bleeding noted.Patient discharged to home in stable condition. Written and verbal after care instructions given. Patient verbalizes understanding of instruction.
[2022-10-02 18:45] VITALS: BP 141/82; TEMP 98.4
== END 2022-10-02 18:40 | disposition home or self-care (01) ==
LOC: ER 15:27
DX: E11.65 Type 2 diabetes mellitus with hyperglycemia (principal); F10.20 Alcohol dependence, uncomplicated; E80.6 Other disorders of bilirubin metabolism; K70.9 Alcoholic liver disease, unspecified; R10.13 Epigastric pain; R11.0 Nausea; Z60.2 Problems related to living alone; Y90.9 Presence of alcohol in blood, level not specified; Z91.148 Patient's other noncompliance with medication regimen for other reason
CPT/HCPCS: 99285; 74176; 96374; 71045; 96361; 93005; 82140; 85025; 80048; 83690; 80076; 36415; 82962 ×2; 36600; J2405; J7030

== ENCOUNTER 2022-12-09 16:37 | Emergency (ER) | payer OTHER ==
[~2022-12-09] VITALS: Ht 180.3 cm; Wt 90.7 kg
[~2022-12-09 16:37] MED LIST changes: +LACT10SO3 PO; +ONDA4TAB5 PO
[2022-12-09 17:00] VITALS: BP 136/83; TEMP 98.9; O2SAT 18
[2022-12-09] MEDS ORDERED: IBUP-1955 PO (17:19)
[2022-12-09] MEDS ORDERED: PRED20TA PO (17:19)
== END 2022-12-09 18:14 | disposition home or self-care (01) ==
LOC: ER 16:52
DX: R20.2 Paresthesia of skin (principal); E11.9 Type 2 diabetes mellitus without complications; Z60.2 Problems related to living alone; Z79.899 Other long term (current) drug therapy; Z79.84 Long term (current) use of oral hypoglycemic drugs